=== PATIENT | male | born 1975 | race Caucasian/White ===

== ENCOUNTER → 2021-02-01 | Outpatient (CLI) | payer OTHER ==
[~2021-02-01] MED LIST: GADOTERATE 5 MMOL/10ML VIAL. INT ART ONE; IOHEXOL 300 MG/ML 50 ML VIAL. INT ART ONE; LIDOCAINE 1% Multi-Dose 20 ML VIAL. ID ONE
--- NOTE | 2021-02-01 14:46 | KCIC ---
Examination: MR arthrogram left shoulder HISTORY: History of left shoulder pain COMPARISON: None available Technique: Multiplanar multisequence MR imaging of the left shoulder performed after arthrogram injec tion FINDINGS: The long head of the biceps tendon within the bicipital groove. The attachment of the long head the b iceps tendon to the superior labral anchor grossly appears intact. The attachment of the subscapulari s tendon, supraspinatus, infraspinatus tendon grossly appears intact. Subtle increased T2 signal iden tified in the superior labrum extending anterior and posterior likely small SLAP tear. The muscle bulk grossly appears unremarkable. Fat is present within the rotator interval. The acromio n is type II. Mild degenerative changes acromioclavicular joint. IMPRESSION: 1. Subtle increased T2 signal identified in the superior labrum extending anterior and posterior lik wilfredo small SLAP tear. 2. Mild degenerative changes acromioclavicular joint. Electronically signed by: Óscar Andrade MD (02/01/2021 2:43 PM) [id number]
--- NOTE | 2021-02-01 15:50 | KCIC ---
Examination: Left Shoulder Arthrogram: Indications: Left shoulder pain. Procedure: Risks, benefits and complications including bleeding, infection, blood vessel damage or j oint infection were discussed with the patient. Questions were answered and consent form signed. Findings/ impression: The patient was placed supine on the fluoroscopy table with the shoulder slightly externally rotated. Bony landmarks were used to plan for fluoroscopic injection. The patient was carefully prepped and draped in a sterile fashion. Using fluoroscopic guidance, local anesthetic and a 22 gauge needle th e joint space was entered. Intra-articular location was confirmed as approximately 12cc of mixture of 5 mL of iodinated contrast, 5 mL lidocaine, 10 mL saline, 0.1 mL clariscan was injected to distend t he shoulder joint. The procedure was well tolerated and the patient was sent to MRI. The patient was sent home in good condition with instructions to contact referring physician if there develops signs or symptoms of com plications, such as pain, bleeding, fever or chills. Total fluoroscopic time 10 seconds. Total fluoroscopic images 1. Impression: Status post fluoroscopic guided arthrogram in preparation for MRI with contrast. Electronically signed by: Óscar Andrade MD (02/01/2021 3:47 PM) [id number]
== END | disposition home or self-care (01) ==
LOC: KCIC 12:39
PROVIDERS: ATTEND Physician Assistant
DX: M25.512 Pain in left shoulder (principal); S43.432A Superior glenoid labrum lesion of left shoulder, initial encounter; M19.012 Primary osteoarthritis, left shoulder; Z79.899 Other long term (current) drug therapy; Z88.2 Allergy status to sulfonamides; Z88.8 Allergy status to other drugs, medicaments and biological substances; X58.XXXA Exposure to other specified factors, initial encounter; Y93.89 Activity, other specified; Y92.89 Other specified places as the place of occurrence of the external cause; Y99.8 Other external cause status
CPT/HCPCS: 23350; 73222; 77002; A9575; J3490; Q9967